=== PATIENT | female | born 1950 | race Caucasian/White ===

== ENCOUNTER 2022-07-12 19:25 | Inpatient (IN) ==
[2022-07-12] MEDS ORDERED: ACETAMINOPHEN 325 MG TABLET PO PRN (20:06)
[2022-07-12] MEDS ORDERED: DOCUSATE SODIUM 100 MG CAPSULE PO PRN (20:06)
[2022-07-12 20:44] LABS: Basophils % 0.2 % (0.0-0.8); Eosinophils # 0.5 10*3/uL (0.0-0.87); Eosinophils % 2.9 % (0.00-10.9); Hematocrit 43.1 VOL% (35.7-47.0); Hemoglobin 14.3 GM/DL (12.0-16.0); Immature Granulocytes % 0.5 %; Immature Granulocytes Absolute 0.08 #; Lymphocytes # 1.4 10*3/uL (1.4-4.0); Lymphocytes % 8.7 % (21.3-54.2); Mean Corpuscular HGB Conc 33.2 GM/DL (32-36); Mean Corpuscular Volume 94.3 FL (87-102); Mean Platelet Volume 9.8 FL (9.6-12.0); Monocytes # 1.4 10*3/uL (0.11-0.8); Monocytes % 8.9 % (1.7-12.7); Neutrophils % 78.8 % (38.7-73.9); Platelet Count 321 T/CUMM (130-400); Red Blood Count 4.57 MC/CUMM (3.8-5.5); White Blood Count 15.8 T/CUMM (4-12)
[2022-07-12 20:58] LABS: Eosinophils,Pleural Fluid 1 %; Lymphocytes,Pleural Fluid 56 %; Monocytes,Pleural Fluid 7 %; Neutrophils,Pleural Fluid 36 %; RBC,Pleural Fluid 12166 T/CUMM
[2022-07-12 21:06] LABS: LDH,Pleural Fluid 400 U/L; Total Protein,Pleural Fluid 3.9 G/DL
[2022-07-12 21:09] LABS: Albumin 2.5 G/DL (3.4-5.0); Bilirubin,Total 0.5 MG/DL (0.20-1.00); Calcium 7.7 MG/DL (8.5-10.1); Osmolality,Calculated 281.5 MOS/KG (273-304); Potassium 3.9 MMOL/L (3.5-5.1); Total Protein 5.9 G/DL (6.4-8.2)
[2022-07-12 21:11] LABS: INR 0.9; PT Patient Result 10.5 SECS (10.1-12.1); Partial Thromboplastin Time 26.5 SECS (23.7-32.9)
[2022-07-12] MEDS: ENOXAPARIN 40 MG/0.4 ML SYRINGE SUBCUT SCH (22:45)
[2022-07-12] MEDS: LEVOFLOXACIN INJ 500 MG/100 ML PREMIX IV SCH (23:40)
[2022-07-13] MEDS: ONDANSETRON 4 MG/2 ML VIAL IV PRN
[2022-07-13] MEDS: MORPHINE 2 MG/1 ML SYRINGE IV PRN (00:43)
[2022-07-13] MEDS: ALBUTEROL/IPRATROPIUM 3 ML NEB RESP TX SCH ×4 (01:20→19:22)
[2022-07-13 04:33] LABS: Basophils % 0.2 % (0.0-0.8); Eosinophils # 0.6 10*3/uL (0.0-0.87); Hematocrit 42.4 VOL% (35.7-47.0); Hemoglobin 13.9 GM/DL (12.0-16.0); Immature Granulocytes % 0.6 %; Immature Granulocytes Absolute 0.08 #; Lymphocytes # 1.5 10*3/uL (1.4-4.0); Lymphocytes % 10.6 % (21.3-54.2); Mean Corpuscular HGB Conc 32.8 GM/DL (32-36); Mean Corpuscular Volume 95.9 FL (87-102); Mean Platelet Volume 9.8 FL (9.6-12.0); Monocytes # 1.3 10*3/uL (0.11-0.8); Monocytes % 9.4 % (1.7-12.7); Neutrophils % 75.2 % (38.7-73.9); Platelet Count 301 T/CUMM (130-400); Red Blood Count 4.42 MC/CUMM (3.8-5.5); White Blood Count 14.1 T/CUMM (4-12)
[2022-07-13 05:01] LABS: Calcium 8.1 MG/DL (8.5-10.1); Osmolality,Calculated 277.8 MOS/KG (273-304)
[2022-07-13] MEDS: LEVOFLOXACIN INJ 500 MG/100 ML PREMIX IV SCH (20:38)
[2022-07-13] MEDS: ENOXAPARIN 40 MG/0.4 ML SYRINGE SUBCUT SCH (20:43)
[2022-07-14] MEDS: ALBUTEROL/IPRATROPIUM 3 ML NEB RESP TX SCH ×4 (00:14→19:06)
[2022-07-14 03:58] LABS: Basophils % 0.3 % (0.0-0.8); Eosinophils # 0.6 10*3/uL (0.0-0.87); Hematocrit 42.1 VOL% (35.7-47.0); Hemoglobin 13.9 GM/DL (12.0-16.0); Immature Granulocytes % 0.8 %; Immature Granulocytes Absolute 0.11 #; Lymphocytes # 1.7 10*3/uL (1.4-4.0); Lymphocytes % 11.8 % (21.3-54.2); Mean Corpuscular Volume 94.8 FL (87-102); Mean Platelet Volume 9.7 FL (9.6-12.0); Monocytes # 1.3 10*3/uL (0.11-0.8); Monocytes % 9.2 % (1.7-12.7); Neutrophils % 73.9 % (38.7-73.9); Platelet Count 277 T/CUMM (130-400); Red Blood Count 4.44 MC/CUMM (3.8-5.5); Red Cell Distribution Width 12.9 % (9.3-17.3); White Blood Count 14.6 T/CUMM (4-12)
[2022-07-14 04:10] LABS: INR 0.9; PT Patient Result 10.5 SECS (10.1-12.1); Partial Thromboplastin Time 31.5 SECS (23.7-32.9)
[2022-07-14 04:30] LABS: Albumin 2.2 G/DL (3.4-5.0); Bilirubin,Total 0.4 MG/DL (0.20-1.00); Osmolality,Calculated 277.8 MOS/KG (273-304); Potassium 3.5 MMOL/L (3.5-5.1); Total Protein 5.3 G/DL (6.4-8.2)
[2022-07-14] MEDS ORDERED: MEPERIDINE 50 MG/1 ML VIAL IM ONE (07:00)
[2022-07-14] MEDS ORDERED: PROMETHAZINE 25 MG/1 ML VIAL IM ONE (07:00)
[2022-07-14] MEDS ORDERED: LIDOCAINE 2% VISCOUS 100 ML BOTTLE SWISH/SPIT ONE (07:30)
[2022-07-14] MEDS ORDERED: LIDOCAINE 1% 20 ML VIAL MISC INJ ONE (07:30)
[2022-07-14] MEDS ORDERED: MIDAZOLAM 2 MG/2 ML VIAL IV ONE (07:30)
[2022-07-14] MEDS ORDERED: LIDOCAINE 2% 20 ML VIAL RESP TX ONE (07:30)
[2022-07-14 13:16] LABS: CEA, Pleural Fluid 207 ng/mL
[2022-07-14] MEDS: ONDANSETRON 4 MG/2 ML VIAL IV PRN (14:32)
[2022-07-14] MEDS: MORPHINE 2 MG/1 ML SYRINGE IV PRN (14:33)
[2022-07-14] MEDS: ENOXAPARIN 40 MG/0.4 ML SYRINGE SUBCUT SCH (20:42)
[2022-07-14] MEDS: LEVOFLOXACIN INJ 500 MG/100 ML PREMIX IV SCH (20:42)
[2022-07-15] MEDS: ALBUTEROL/IPRATROPIUM 3 ML NEB RESP TX SCH ×4 (00:12→19:07)
[2022-07-15] MEDS: ONDANSETRON 4 MG/2 ML VIAL IV PRN ×2 (04:53→20:29)
[2022-07-15] MEDS: MORPHINE 2 MG/1 ML SYRINGE IV PRN ×2 (04:55→20:31)
[2022-07-15 19:11] LABS: M. Tuberculosis PCR Result Negative (Negative); M. Tuberculosis PCR Source PLEURAL FLUID
[2022-07-15] MEDS: ENOXAPARIN 40 MG/0.4 ML SYRINGE SUBCUT SCH (20:28)
[2022-07-15] MEDS: LEVOFLOXACIN INJ 500 MG/100 ML PREMIX IV SCH (20:32)
[2022-07-16] MEDS: ALBUTEROL/IPRATROPIUM 3 ML NEB RESP TX SCH ×4 (00:19→19:15)
[2022-07-16 05:12] LABS: Basophils % 0.3 % (0.0-0.8); Eosinophils # 0.6 10*3/uL (0.0-0.87); Eosinophils % 4.4 % (0.00-10.9); Hematocrit 41.3 VOL% (35.7-47.0); Hemoglobin 13.6 GM/DL (12.0-16.0); Immature Granulocytes % 0.6 %; Immature Granulocytes Absolute 0.08 #; Lymphocytes # 1.7 10*3/uL (1.4-4.0); Lymphocytes % 13.1 % (21.3-54.2); Mean Corpuscular HGB Conc 32.9 GM/DL (32-36); Mean Corpuscular Volume 94.7 FL (87-102); Mean Platelet Volume 9.8 FL (9.6-12.0); Monocytes # 1.3 10*3/uL (0.11-0.8); Monocytes % 10.4 % (1.7-12.7); Neutrophils % 71.2 % (38.7-73.9); Platelet Count 262 T/CUMM (130-400); Red Blood Count 4.36 MC/CUMM (3.8-5.5); Red Cell Distribution Width 12.9 % (9.3-17.3); White Blood Count 12.9 T/CUMM (4-12)
[2022-07-16 05:33] LABS: Calcium 7.6 MG/DL (8.5-10.1); Osmolality,Calculated 275.7 MOS/KG (273-304); Potassium 3.2 MMOL/L (3.5-5.1)
[2022-07-16] MEDS: POTASSIUM CHLORIDE RIDER 10 MEQ/100 ML PREMIX IV SCH ×2 (11:32→11:58)
[2022-07-16] MEDS ORDERED: POTASSIUM CHLORIDE 20 MEQ TABLET PO ONE (11:55)
[2022-07-16] MEDS: ONDANSETRON 4 MG/2 ML VIAL IV PRN (22:51)
[2022-07-16] MEDS: MORPHINE 2 MG/1 ML SYRINGE IV PRN (22:51)
[2022-07-16] MEDS: LEVOFLOXACIN INJ 500 MG/100 ML PREMIX IV SCH (22:52)
[2022-07-16] MEDS: ENOXAPARIN 40 MG/0.4 ML SYRINGE SUBCUT SCH (22:52)
[2022-07-17] MEDS: ALBUTEROL/IPRATROPIUM 3 ML NEB RESP TX SCH ×3 (00:25→13:55)
[2022-07-17 05:58] LABS: Basophils % 0.3 % (0.0-0.8); Eosinophils # 0.5 10*3/uL (0.0-0.87); Eosinophils % 3.8 % (0.00-10.9); Hematocrit 41.4 VOL% (35.7-47.0); Hemoglobin 13.6 GM/DL (12.0-16.0); Immature Granulocytes % 0.9 %; Immature Granulocytes Absolute 0.11 #; Lymphocytes # 1.6 10*3/uL (1.4-4.0); Mean Corpuscular HGB Conc 32.9 GM/DL (32-36); Mean Corpuscular Volume 96.1 FL (87-102); Mean Platelet Volume 10.1 FL (9.6-12.0); Monocytes # 1.4 10*3/uL (0.11-0.8); Monocytes % 11.5 % (1.7-12.7); Neutrophils % 70.5 % (38.7-73.9); Platelet Count 252 T/CUMM (130-400); Red Blood Count 4.31 MC/CUMM (3.8-5.5); Red Cell Distribution Width 12.9 % (9.3-17.3); White Blood Count 12.3 T/CUMM (4-12)
[2022-07-17 06:13] LABS: Calcium 7.8 MG/DL (8.5-10.1); Osmolality,Calculated 277.5 MOS/KG (273-304); Potassium 3.4 MMOL/L (3.5-5.1)
[2022-07-17] MEDS ORDERED: FUROSEMIDE 40 MG TABLET PO ONE (08:20)
[2022-07-17] MEDS ORDERED: POTASSIUM CHLORIDE RIDER 10 MEQ/100 ML PREMIX IV SCH (09:00)
[2022-07-17] MEDS ORDERED: POTASSIUM CHLORIDE 20 MEQ TABLET PO PRN (10:07)
[2022-07-17 11:59] VITALS: BP 139/66
== END 2022-07-17 16:30 | disposition home or self-care (01) | DRG 180 ==
LOC: N.ED 19:25 → N.EDINP 20:02 → SUATTDRO 20:02 → N.2E 07-13 11:10
PROVIDERS: ADMIT Internal Medicine; ATTEND Internal Medicine
PROC: BRONCHB (2022-07-14 07:20)

== ENCOUNTER 2022-07-24 13:19 | Inpatient (IN) ==
[2022-07-24 14:09] LABS: Basophils % 0.2 % (0.0-0.8); Eosinophils # 0.3 10*3/uL (0.0-0.87); Eosinophils % 2.2 % (0.00-10.9); Hemoglobin 14.1 GM/DL (12.0-16.0); Immature Granulocytes % 0.9 %; Immature Granulocytes Absolute 0.14 #; Lymphocytes # 1.2 10*3/uL (1.4-4.0); Lymphocytes % 7.8 % (21.3-54.2); Mean Corpuscular HGB Conc 32.8 GM/DL (32-36); Mean Corpuscular Volume 93.9 FL (87-102); Mean Platelet Volume 9.5 FL (9.6-12.0); Monocytes # 1.3 10*3/uL (0.11-0.8); Monocytes % 8.4 % (1.7-12.7); Neutrophils % 80.5 % (38.7-73.9); Platelet Count 325 T/CUMM (130-400); Red Blood Count 4.58 MC/CUMM (3.8-5.5); Red Cell Distribution Width 13.5 % (9.3-17.3); White Blood Count 15.1 T/CUMM (4-12)
[2022-07-24 14:22] LABS: Albumin 2.7 G/DL (3.4-5.0); Bilirubin,Total 0.5 MG/DL (0.20-1.00); Calcium 8.7 MG/DL (8.5-10.1); Osmolality,Calculated 277.8 MOS/KG (273-304); Potassium 3.1 MMOL/L (3.5-5.1); Total Protein 6.1 G/DL (6.4-8.2)
[2022-07-24 15:46] LABS: PT Patient Result 10.7 SECS (10.1-12.1); Partial Thromboplastin Time 31.5 SECS (23.7-32.9)
[2022-07-24] MEDS ORDERED: ALBUTEROL 1.25 MG/3 ML NEB RESP TX PRN (16:29)
[2022-07-24] MEDS ORDERED: DEXTROSE 10% 250 ML BAG IV PRN (16:29)
[2022-07-24] MEDS ORDERED: GLUCAGON 1 MG VIAL IM PRN (16:30)
[2022-07-24] MEDS ORDERED: MAGNESIUM SULF RIDER 2 GM/50 ML PREMIX IV PRN (16:31)
[2022-07-24] MEDS ORDERED: MAGNESIUM SULF RIDER 4 GM/100 ML PREMIX IV PRN (16:31)
[2022-07-24] MEDS ORDERED: POTASSIUM CHLORIDE 20 MEQ TABLET PO PRN (16:34)
[2022-07-24] MEDS ORDERED: LACTATED RINGERS 1,000 ML IV SCH (17:00)
[2022-07-24] MEDS: ENOXAPARIN 40 MG/0.4 ML SYRINGE SUBCUT SCH (18:24)
[2022-07-24] MEDS: INSULIN LISPRO 100 UNIT/ML SUBCUT SCH (22:16)
[2022-07-25] MEDS: INSULIN LISPRO 100 UNIT/ML SUBCUT SCH ×4 (07:23→21:25)
[2022-07-25 08:43] LABS: Basophils % 0.4 % (0.0-0.8); Eosinophils # 0.6 10*3/uL (0.0-0.87); Eosinophils % 5.4 % (0.00-10.9); Hemoglobin 12.7 GM/DL (12.0-16.0); Immature Granulocytes % 0.5 %; Immature Granulocytes Absolute 0.05 #; Lymphocytes # 1.3 10*3/uL (1.4-4.0); Mean Corpuscular HGB Conc 32.6 GM/DL (32-36); Mean Corpuscular Volume 95.8 FL (87-102); Mean Platelet Volume 9.3 FL (9.6-12.0); Monocytes # 0.9 10*3/uL (0.11-0.8); Monocytes % 8.3 % (1.7-12.7); Neutrophils % 73.4 % (38.7-73.9); Platelet Count 286 T/CUMM (130-400); Red Blood Count 4.07 MC/CUMM (3.8-5.5); Red Cell Distribution Width 13.3 % (9.3-17.3); White Blood Count 10.5 T/CUMM (4-12)
[2022-07-25 09:08] LABS: Albumin 2.1 G/DL (3.4-5.0); Bilirubin,Total 0.5 MG/DL (0.20-1.00); Osmolality,Calculated 282.5 MOS/KG (273-304); Potassium 2.9 MMOL/L (3.5-5.1); Total Protein 5.3 G/DL (6.4-8.2)
[2022-07-25] MEDS ORDERED: POTASSIUM CHLORIDE 20 MEQ TABLET PO ONE ×3 (14:15→21:00)
[2022-07-25] MEDS: ENOXAPARIN 40 MG/0.4 ML SYRINGE SUBCUT SCH (17:38)
[2022-07-25] MEDS: ALBUTEROL 1.25 MG/3 ML NEB RESP TX SCH (18:26)
[2022-07-26] MEDS: ALBUTEROL 1.25 MG/3 ML NEB RESP TX SCH ×4 (01:37→19:25)
[2022-07-26 05:29] LABS: Basophils % 0.2 % (0.0-0.8); Eosinophils # 0.6 10*3/uL (0.0-0.87); Hematocrit 38.8 VOL% (35.7-47.0); Hemoglobin 12.8 GM/DL (12.0-16.0); Immature Granulocytes % 0.5 %; Immature Granulocytes Absolute 0.06 #; Lymphocytes # 1.3 10*3/uL (1.4-4.0); Lymphocytes % 10.6 % (21.3-54.2); Mean Corpuscular Volume 96.5 FL (87-102); Mean Platelet Volume 9.6 FL (9.6-12.0); Monocytes # 1.1 10*3/uL (0.11-0.8); Monocytes % 9.4 % (1.7-12.7); Neutrophils % 74.3 % (38.7-73.9); Platelet Count 309 T/CUMM (130-400); Red Blood Count 4.02 MC/CUMM (3.8-5.5); Red Cell Distribution Width 13.3 % (9.3-17.3); White Blood Count 12.1 T/CUMM (4-12)
[2022-07-26 05:57] LABS: Albumin 2.1 G/DL (3.4-5.0); Bilirubin,Total 0.5 MG/DL (0.20-1.00); Osmolality,Calculated 281.5 MOS/KG (273-304); Potassium 3.9 MMOL/L (3.5-5.1); Total Protein 5.6 G/DL (6.4-8.2)
[2022-07-26] MEDS: INSULIN LISPRO 100 UNIT/ML SUBCUT SCH ×4 (08:31→20:07)
[2022-07-26] MEDS: ONDANSETRON 4 MG/2 ML VIAL IV PRN (12:23)
[2022-07-26] MEDS: MORPHINE 2 MG/1 ML SYRINGE IV PRN (12:24)
[2022-07-27] MEDS: ALBUTEROL 1.25 MG/3 ML NEB RESP TX SCH ×4 (00:04→19:07)
[2022-07-27] MEDS: ONDANSETRON 4 MG/2 ML VIAL IV PRN ×2 (05:20→21:34)
[2022-07-27 05:45] LABS: Basophils % 0.3 % (0.0-0.8); Eosinophils # 0.7 10*3/uL (0.0-0.87); Eosinophils % 5.6 % (0.00-10.9); Hematocrit 39.5 VOL% (35.7-47.0); Hemoglobin 12.9 GM/DL (12.0-16.0); Immature Granulocytes % 0.6 %; Immature Granulocytes Absolute 0.08 #; Lymphocytes % 7.4 % (21.3-54.2); Mean Corpuscular HGB Conc 32.7 GM/DL (32-36); Mean Corpuscular Volume 98.5 FL (87-102); Mean Platelet Volume 9.6 FL (9.6-12.0); Monocytes # 1.2 10*3/uL (0.11-0.8); Monocytes % 9.6 % (1.7-12.7); Neutrophils % 76.5 % (38.7-73.9); Platelet Count 302 T/CUMM (130-400); Red Blood Count 4.01 MC/CUMM (3.8-5.5); Red Cell Distribution Width 13.2 % (9.3-17.3); White Blood Count 12.9 T/CUMM (4-12)
[2022-07-27 05:58] LABS: Albumin 2.1 G/DL (3.4-5.0); Bilirubin,Total 0.4 MG/DL (0.20-1.00); Calcium 8.1 MG/DL (8.5-10.1); Osmolality,Calculated 284.4 MOS/KG (273-304); Potassium 3.8 MMOL/L (3.5-5.1); Total Protein 5.6 G/DL (6.4-8.2)
[2022-07-27] MEDS ORDERED: DIAZEPAM 5 MG TABLET PO ONE (07:48)
[2022-07-27] MEDS: INSULIN LISPRO 100 UNIT/ML SUBCUT SCH ×4 (08:24→21:34)
[2022-07-27] MEDS: FOLIC ACID 1 MG TABLET PO SCH (11:33)
[2022-07-27] MEDS ORDERED: PROMETHAZINE INJ 12.5 MG in SODIUM CHLORIDE 0.9% 50 ML IV PRN (13:31)
[2022-07-27] MEDS: POLYETHYLENE GLYCOL POWDER 17 GM PACK PO SCH (14:46)
[2022-07-27] MEDS: MORPHINE 2 MG/1 ML SYRINGE IV PRN (21:33)
[2022-07-28] MEDS: ALBUTEROL 1.25 MG/3 ML NEB RESP TX SCH ×4 (00:05→17:55)
[2022-07-28 05:36] LABS: Basophils % 0.2 % (0.0-0.8); Eosinophils # 0.6 10*3/uL (0.0-0.87); Eosinophils % 4.6 % (0.00-10.9); Hematocrit 40.1 VOL% (35.7-47.0); Hemoglobin 12.9 GM/DL (12.0-16.0); Immature Granulocytes % 0.7 %; Lymphocytes # 0.9 10*3/uL (1.4-4.0); Lymphocytes % 6.5 % (21.3-54.2); Mean Corpuscular HGB Conc 32.2 GM/DL (32-36); Mean Corpuscular Volume 97.8 FL (87-102); Mean Platelet Volume 9.7 FL (9.6-12.0); Monocytes # 1.4 10*3/uL (0.11-0.8); Monocytes % 10.4 % (1.7-12.7); Neutrophils % 77.6 % (38.7-73.9); Platelet Count 288 T/CUMM (130-400); Red Cell Distribution Width 13.2 % (9.3-17.3); White Blood Count 13.6 T/CUMM (4-12)
[2022-07-28 05:56] LABS: Bilirubin,Total 0.5 MG/DL (0.20-1.00); Calcium 8.2 MG/DL (8.5-10.1); Osmolality,Calculated 279.7 MOS/KG (273-304); Total Protein 5.5 G/DL (6.4-8.2)
[2022-07-28] MEDS ORDERED: fentaNYL 100 MCG/2 ML VIAL ONE (05:57)
[2022-07-28] MEDS ORDERED: MIDAZOLAM 2 MG/2 ML VIAL ONE (05:57)
[2022-07-28] MEDS ORDERED: propofoL 200 MG/20 ML VIAL IV ONE (05:57)
[2022-07-28] MEDS ORDERED: LIDOCAINE 2% 5 ML VIAL ONE (05:57)
[2022-07-28] MEDS ORDERED: HEPARIN 5,000 UNIT/1 ML VIAL ONE (06:35)
[2022-07-28] MEDS ORDERED: LIDOCAINE 1%/EPI INJ 20 ML VIAL ONE (06:35)
[2022-07-28] MEDS ORDERED: BUPIVACAINE MPF 0.25% 10 ML VIAL ONE (06:35)
[2022-07-28] MEDS ORDERED: diphenhydrAMINE 50 MG/1 ML VIAL ONE (06:58)
[2022-07-28] MEDS ORDERED: methylPREDNISolone SOD SUC 125 MG/2 ML VIAL ONE (06:58)
[2022-07-28] MEDS ORDERED: LACTATED RINGERS 1,000 ML IV SCH (07:00)
[2022-07-28] MEDS ORDERED: TISSUE ADHESIVE 1 EACH APPLICATOR TOP ONE (07:46)
[2022-07-28] MEDS ORDERED: POLYETHYLENE GLYCOL POWDER 17 GM PACK PO SCH (09:00)
[2022-07-28] MEDS: FOLIC ACID 1 MG TABLET PO SCH (09:07)
[2022-07-28] MEDS: INSULIN LISPRO 100 UNIT/ML SUBCUT SCH ×4 (09:08→23:55)
[2022-07-28] MEDS: POLYETHYLENE GLYCOL POWDER 17 GM PACK PO SCH (09:08)
[2022-07-28] MEDS ORDERED: CAMPHOR/MENTHOL LOTION 222 ML BOTTLE TOP PRN (15:08)
[2022-07-28] MEDS ORDERED: hydrOXYzine HCL 25 MG TABLET PO PRN (15:09)
[2022-07-28] MEDS ORDERED: FUROSEMIDE 40 MG/4 ML VIAL IV STA (19:06)
[2022-07-29] MEDS: ALBUTEROL 1.25 MG/3 ML NEB RESP TX SCH ×4 (00:02→20:51)
[2022-07-29 06:33] LABS: Basophils % 0.1 % (0.0-0.8); Eosinophils # 0.6 10*3/uL (0.0-0.87); Eosinophils % 4.2 % (0.00-10.9); Hematocrit 41.3 VOL% (35.7-47.0); Hemoglobin 13.4 GM/DL (12.0-16.0); Immature Granulocytes % 0.7 %; Immature Granulocytes Absolute 0.09 #; Lymphocytes # 0.8 10*3/uL (1.4-4.0); Lymphocytes % 5.6 % (21.3-54.2); Mean Corpuscular HGB Conc 32.4 GM/DL (32-36); Mean Corpuscular Volume 97.2 FL (87-102); Mean Platelet Volume 9.6 FL (9.6-12.0); Monocytes # 1.3 10*3/uL (0.11-0.8); Monocytes % 9.3 % (1.7-12.7); Neutrophils % 80.1 % (38.7-73.9); Platelet Count 268 T/CUMM (130-400); Red Blood Count 4.25 MC/CUMM (3.8-5.5); Red Cell Distribution Width 13.1 % (9.3-17.3); White Blood Count 13.5 T/CUMM (4-12)
[2022-07-29 06:54] LABS: Bilirubin,Total 0.5 MG/DL (0.20-1.00); Calcium 8.1 MG/DL (8.5-10.1); Osmolality,Calculated 280.5 MOS/KG (273-304); Potassium 4.1 MMOL/L (3.5-5.1); Total Protein 5.7 G/DL (6.4-8.2)
[2022-07-29] MEDS: INSULIN LISPRO 100 UNIT/ML SUBCUT SCH ×4 (07:32→21:59)
[2022-07-29] MEDS: FOLIC ACID 1 MG TABLET PO SCH (08:24)
[2022-07-29] MEDS: POLYETHYLENE GLYCOL POWDER 17 GM PACK PO SCH (08:24)
[2022-07-29] MEDS: diphenhydrAMINE CAP 25 MG CAPSULE PO PRN ×2 (08:24→13:33)
[2022-07-29] MEDS: ENOXAPARIN 40 MG/0.4 ML SYRINGE SUBCUT SCH (17:13)
[2022-07-30] MEDS: ALBUTEROL 1.25 MG/3 ML NEB RESP TX SCH ×4 (01:24→19:29)
[2022-07-30 05:29] LABS: Basophils % 0.2 % (0.0-0.8); Eosinophils # 0.6 10*3/uL (0.0-0.87); Eosinophils % 4.8 % (0.00-10.9); Hematocrit 38.6 VOL% (35.7-47.0); Hemoglobin 12.8 GM/DL (12.0-16.0); Immature Granulocytes % 1.1 %; Immature Granulocytes Absolute 0.15 #; Lymphocytes # 0.8 10*3/uL (1.4-4.0); Lymphocytes % 6.4 % (21.3-54.2); Mean Corpuscular HGB Conc 33.2 GM/DL (32-36); Mean Corpuscular Volume 95.1 FL (87-102); Monocytes # 1.1 10*3/uL (0.11-0.8); Monocytes % 8.6 % (1.7-12.7); Neutrophils % 78.9 % (38.7-73.9); Platelet Count 260 T/CUMM (130-400); Red Blood Count 4.06 MC/CUMM (3.8-5.5); Red Cell Distribution Width 12.9 % (9.3-17.3); White Blood Count 13.2 T/CUMM (4-12)
[2022-07-30 05:56] LABS: Albumin 1.9 G/DL (3.4-5.0); Bilirubin,Total 0.5 MG/DL (0.20-1.00); Calcium 8.4 MG/DL (8.5-10.1); Osmolality,Calculated 275.1 MOS/KG (273-304); Potassium 4.2 MMOL/L (3.5-5.1); Total Protein 5.4 G/DL (6.4-8.2)
[2022-07-30] MEDS: diphenhydrAMINE CAP 25 MG CAPSULE PO PRN (06:24)
[2022-07-30] MEDS: INSULIN LISPRO 100 UNIT/ML SUBCUT SCH ×4 (08:17→21:00)
[2022-07-30] MEDS: FOLIC ACID 1 MG TABLET PO SCH (10:26)
[2022-07-30] MEDS: POLYETHYLENE GLYCOL POWDER 17 GM PACK PO SCH (10:27)
[2022-07-30] MEDS: ENOXAPARIN 40 MG/0.4 ML SYRINGE SUBCUT SCH (16:52)
[2022-07-31] MEDS: diphenhydrAMINE CAP 25 MG CAPSULE PO PRN ×2 (00:05→09:27)
[2022-07-31] MEDS: ALBUTEROL 1.25 MG/3 ML NEB RESP TX SCH ×4 (00:12→19:33)
[2022-07-31 05:25] LABS: Basophils % 0.2 % (0.0-0.8); Eosinophils # 0.8 10*3/uL (0.0-0.87); Eosinophils % 6.6 % (0.00-10.9); Hemoglobin 12.5 GM/DL (12.0-16.0); Immature Granulocytes % 0.6 %; Immature Granulocytes Absolute 0.07 #; Lymphocytes # 1.1 10*3/uL (1.4-4.0); Lymphocytes % 8.4 % (21.3-54.2); Mean Corpuscular HGB Conc 32.9 GM/DL (32-36); Mean Corpuscular Volume 96.2 FL (87-102); Mean Platelet Volume 9.2 FL (9.6-12.0); Monocytes # 1.2 10*3/uL (0.11-0.8); Monocytes % 9.3 % (1.7-12.7); Neutrophils % 74.9 % (38.7-73.9); Platelet Count 253 T/CUMM (130-400); Red Blood Count 3.95 MC/CUMM (3.8-5.5); Red Cell Distribution Width 12.8 % (9.3-17.3); White Blood Count 12.6 T/CUMM (4-12)
[2022-07-31 05:58] LABS: Calcium 8.7 MG/DL (8.5-10.1); Potassium 4.4 MMOL/L (3.5-5.1)
[2022-07-31] MEDS: INSULIN LISPRO 100 UNIT/ML SUBCUT SCH ×4 (07:43→20:46)
[2022-07-31] MEDS: FOLIC ACID 1 MG TABLET PO SCH (09:25)
[2022-07-31] MEDS: POLYETHYLENE GLYCOL POWDER 17 GM PACK PO SCH (09:25)
[2022-07-31] MEDS: ENOXAPARIN 40 MG/0.4 ML SYRINGE SUBCUT SCH (17:06)
[2022-07-31] MEDS: OMEPRAZOLE ODT 20 MG TABLET PO SCH ×2 (18:19→21:29)
[2022-08-01] MEDS: ALBUTEROL 1.25 MG/3 ML NEB RESP TX SCH ×4 (01:31→19:15)
[2022-08-01] MEDS: FOLIC ACID 1 MG TABLET PO SCH (08:30)
[2022-08-01] MEDS: OMEPRAZOLE ODT 20 MG TABLET PO SCH ×2 (08:30→21:28)
[2022-08-01] MEDS: INSULIN LISPRO 100 UNIT/ML SUBCUT SCH ×4 (08:31→21:26)
[2022-08-01] MEDS: diphenhydrAMINE CAP 25 MG CAPSULE PO PRN (08:32)
[2022-08-01] MEDS: POLYETHYLENE GLYCOL POWDER 17 GM PACK PO SCH (08:32)
[2022-08-01] MEDS: ALBUTEROL 2.5 MG/3 ML NEB RESP TX PRN (11:30)
[2022-08-01] MEDS: ENOXAPARIN 40 MG/0.4 ML SYRINGE SUBCUT SCH (17:17)
[2022-08-02] MEDS: ALBUTEROL 1.25 MG/3 ML NEB RESP TX SCH ×4 (00:05→19:54)
[2022-08-02 06:00] LABS: Basophils # 0.1 10*3/uL (0.0-0.2); Basophils % 0.5 % (0.0-0.8); Eosinophils # 0.9 10*3/uL (0.0-0.87); Eosinophils % 7.1 % (0.00-10.9); Hematocrit 36.7 VOL% (35.7-47.0); Hemoglobin 11.8 GM/DL (12.0-16.0); Immature Granulocytes % 0.9 %; Immature Granulocytes Absolute 0.11 #; Lymphocytes # 1.2 10*3/uL (1.4-4.0); Lymphocytes % 9.5 % (21.3-54.2); Mean Corpuscular HGB Conc 32.2 GM/DL (32-36); Mean Corpuscular Volume 96.8 FL (87-102); Mean Platelet Volume 9.4 FL (9.6-12.0); Monocytes # 1.2 10*3/uL (0.11-0.8); Platelet Count 281 T/CUMM (130-400); Red Blood Count 3.79 MC/CUMM (3.8-5.5); Red Cell Distribution Width 13.1 % (9.3-17.3); White Blood Count 12.3 T/CUMM (4-12)
[2022-08-02 06:22] LABS: Osmolality,Calculated 274.8 MOS/KG (273-304); Potassium 3.7 MMOL/L (3.5-5.1)
[2022-08-02] MEDS: ACETAMINOPHEN 325 MG TABLET PO PRN (08:45)
[2022-08-02] MEDS: FOLIC ACID 1 MG TABLET PO SCH (08:45)
[2022-08-02] MEDS: OMEPRAZOLE ODT 20 MG TABLET PO SCH ×2 (08:46→20:25)
[2022-08-02] MEDS: POLYETHYLENE GLYCOL POWDER 17 GM PACK PO SCH (08:47)
[2022-08-02] MEDS: INSULIN LISPRO 100 UNIT/ML SUBCUT SCH ×4 (08:48→20:25)
[2022-08-02] MEDS ORDERED: MORPHINE 2 MG/1 ML SYRINGE IV ONE (10:24)
[2022-08-02] MEDS: ENOXAPARIN 40 MG/0.4 ML SYRINGE SUBCUT SCH (16:32)
[2022-08-02] MEDS: diphenhydrAMINE CAP 25 MG CAPSULE PO PRN (17:46)
[2022-08-03] MEDS: ALBUTEROL 1.25 MG/3 ML NEB RESP TX SCH ×4 (01:14→19:05)
[2022-08-03] MEDS: ACETAMINOPHEN 325 MG TABLET PO PRN (04:15)
[2022-08-03 06:08] LABS: Basophils # 0.1 10*3/uL (0.0-0.2); Basophils % 0.4 % (0.0-0.8); Calcium 8.1 MG/DL (8.5-10.1); Eosinophils % 7.8 % (0.00-10.9); Hematocrit 34.9 VOL% (35.7-47.0); Hemoglobin 11.1 GM/DL (12.0-16.0); Immature Granulocytes % 0.7 %; Immature Granulocytes Absolute 0.08 #; Lymphocytes # 1.4 10*3/uL (1.4-4.0); Lymphocytes % 11.3 % (21.3-54.2); Mean Corpuscular HGB Conc 31.8 GM/DL (32-36); Mean Corpuscular Volume 99.1 FL (87-102); Monocytes # 1.2 10*3/uL (0.11-0.8); Monocytes % 10.1 % (1.7-12.7); Neutrophils % 69.7 % (38.7-73.9); Osmolality,Calculated 276.7 MOS/KG (273-304); Platelet Count 309 T/CUMM (130-400); Potassium 3.6 MMOL/L (3.5-5.1); Red Blood Count 3.52 MC/CUMM (3.8-5.5); Red Cell Distribution Width 13.1 % (9.3-17.3); White Blood Count 12.1 T/CUMM (4-12)
[2022-08-03] MEDS: INSULIN LISPRO 100 UNIT/ML SUBCUT SCH ×4 (07:43→21:07)
[2022-08-03] MEDS: OMEPRAZOLE ODT 20 MG TABLET PO SCH ×2 (08:39→21:08)
[2022-08-03] MEDS: FOLIC ACID 1 MG TABLET PO SCH (08:39)
[2022-08-03] MEDS: POLYETHYLENE GLYCOL POWDER 17 GM PACK PO SCH (08:41)
[2022-08-03] MEDS ORDERED: ALBUTEROL 2.5 MG/3 ML NEB RESP TX ONE (15:58)
[2022-08-03] MEDS ORDERED: FAMOTIDINE 20 MG TABLET PO ONE (15:58)
[2022-08-03] MEDS: ENOXAPARIN 40 MG/0.4 ML SYRINGE SUBCUT SCH (17:01)
[2022-08-03] MEDS: ALBUTEROL 2.5 MG/3 ML NEB RESP TX PRN (17:35)
[2022-08-04] MEDS: ALBUTEROL 1.25 MG/3 ML NEB RESP TX SCH ×4 (01:00→20:11)
[2022-08-04 05:59] LABS: Basophils # 0.1 10*3/uL (0.0-0.2); Basophils % 0.3 % (0.0-0.8); Eosinophils # 0.6 10*3/uL (0.0-0.87); Eosinophils % 3.6 % (0.00-10.9); Hematocrit 40.8 VOL% (35.7-47.0); Immature Granulocytes % 1.4 %; Immature Granulocytes Absolute 0.24 #; Lymphocytes # 0.7 10*3/uL (1.4-4.0); Lymphocytes % 4.3 % (21.3-54.2); Mean Corpuscular HGB Conc 31.9 GM/DL (32-36); Mean Corpuscular Volume 96.5 FL (87-102); Mean Platelet Volume 9.6 FL (9.6-12.0); Monocytes # 0.7 10*3/uL (0.11-0.8); Neutrophils % 86.4 % (38.7-73.9); Platelet Count 337 T/CUMM (130-400); Red Blood Count 4.23 MC/CUMM (3.8-5.5); Red Cell Distribution Width 13.2 % (9.3-17.3); White Blood Count 17.4 T/CUMM (4-12)
[2022-08-04] MEDS ORDERED: ALBUTEROL 2.5 MG/3 ML NEB RESP TX ONE (06:00)
[2022-08-04] MEDS ORDERED: FAMOTIDINE 20 MG TABLET PO ONE (06:00)
[2022-08-04 06:11] LABS: Calcium 8.1 MG/DL (8.5-10.1); Potassium 4.2 MMOL/L (3.5-5.1)
[2022-08-04 06:34] LABS: Eosinophils 1 % (0-10); Lymphocytes 5 % (20-55); Platelet Estimate Adequate; Total Cells Counted 100
[2022-08-04] MEDS: cefTRIAXone 2,000 MG in SODIUM CHLORIDE 0.9% 100 ML IV SCH (08:55)
[2022-08-04] MEDS: INSULIN LISPRO 100 UNIT/ML SUBCUT SCH ×4 (10:11→21:09)
[2022-08-04] MEDS: FOLIC ACID 1 MG TABLET PO SCH (10:11)
[2022-08-04] MEDS: POLYETHYLENE GLYCOL POWDER 17 GM PACK PO SCH (10:12)
[2022-08-04] MEDS: OMEPRAZOLE ODT 20 MG TABLET PO SCH ×2 (10:12→21:09)
[2022-08-04] MEDS: diphenhydrAMINE CAP 25 MG CAPSULE PO PRN ×2 (11:05→18:05)
[2022-08-04] MEDS: MORPHINE 2 MG/1 ML SYRINGE IV PRN (13:45)
[2022-08-04] MEDS: ENOXAPARIN 40 MG/0.4 ML SYRINGE SUBCUT SCH (16:25)
[2022-08-05] MEDS: ALBUTEROL 1.25 MG/3 ML NEB RESP TX SCH ×4 (01:23→18:20)
[2022-08-05] MEDS: diphenhydrAMINE CAP 25 MG CAPSULE PO PRN ×2 (05:02→18:18)
[2022-08-05 05:52] LABS: Basophils % 0.3 % (0.0-0.8); Eosinophils # 1.1 10*3/uL (0.0-0.87); Eosinophils % 8.7 % (0.00-10.9); Hematocrit 39.5 VOL% (35.7-47.0); Hemoglobin 12.3 GM/DL (12.0-16.0); Immature Granulocytes % 1.2 %; Immature Granulocytes Absolute 0.15 #; Lymphocytes # 1.1 10*3/uL (1.4-4.0); Lymphocytes % 8.8 % (21.3-54.2); Mean Corpuscular HGB Conc 31.1 GM/DL (32-36); Mean Corpuscular Volume 97.5 FL (87-102); Mean Platelet Volume 9.6 FL (9.6-12.0); Monocytes % 8.1 % (1.7-12.7); Neutrophils % 72.9 % (38.7-73.9); Platelet Count 320 T/CUMM (130-400); Red Blood Count 4.05 MC/CUMM (3.8-5.5); Red Cell Distribution Width 13.2 % (9.3-17.3); White Blood Count 12.9 T/CUMM (4-12)
[2022-08-05 06:04] LABS: Calcium 8.1 MG/DL (8.5-10.1); Osmolality,Calculated 274.1 MOS/KG (273-304); Potassium 3.7 MMOL/L (3.5-5.1)
[2022-08-05] MEDS: OMEPRAZOLE ODT 20 MG TABLET PO SCH ×2 (09:13→21:08)
[2022-08-05] MEDS: FOLIC ACID 1 MG TABLET PO SCH (09:13)
[2022-08-05] MEDS: cefTRIAXone 2,000 MG in SODIUM CHLORIDE 0.9% 100 ML IV SCH (09:13)
[2022-08-05] MEDS: POLYETHYLENE GLYCOL POWDER 17 GM PACK PO SCH (09:13)
[2022-08-05] MEDS ORDERED: FUROSEMIDE 40 MG/4 ML VIAL IV ONE (09:53)
[2022-08-05] MEDS: INSULIN LISPRO 100 UNIT/ML SUBCUT SCH ×4 (11:18→21:08)
[2022-08-05] MEDS: ENOXAPARIN 40 MG/0.4 ML SYRINGE SUBCUT SCH (16:26)
[2022-08-06] MEDS: ALBUTEROL 1.25 MG/3 ML NEB RESP TX SCH ×4 (02:21→19:21)
[2022-08-06] MEDS: MORPHINE 2 MG/1 ML SYRINGE IV PRN (04:05)
[2022-08-06 05:53] LABS: Basophils # 0.1 10*3/uL (0.0-0.2); Basophils % 0.4 % (0.0-0.8); Eosinophils # 1.2 10*3/uL (0.0-0.87); Eosinophils % 9.6 % (0.00-10.9); Hematocrit 38.5 VOL% (35.7-47.0); Hemoglobin 12.2 GM/DL (12.0-16.0); Immature Granulocytes Absolute 0.13 #; Lymphocytes # 1.1 10*3/uL (1.4-4.0); Lymphocytes % 8.5 % (21.3-54.2); Mean Corpuscular HGB Conc 31.7 GM/DL (32-36); Mean Platelet Volume 9.6 FL (9.6-12.0); Monocytes # 1.2 10*3/uL (0.11-0.8); Monocytes % 9.6 % (1.7-12.7); Neutrophils % 70.9 % (38.7-73.9); Platelet Count 302 T/CUMM (130-400); Red Blood Count 3.97 MC/CUMM (3.8-5.5); Red Cell Distribution Width 13.2 % (9.3-17.3); White Blood Count 12.8 T/CUMM (4-12)
[2022-08-06 06:12] LABS: Calcium 8.4 MG/DL (8.5-10.1); Osmolality,Calculated 280.7 MOS/KG (273-304); Potassium 4.4 MMOL/L (3.5-5.1)
[2022-08-06] MEDS: INSULIN LISPRO 100 UNIT/ML SUBCUT SCH ×4 (08:30→20:37)
[2022-08-06] MEDS: OMEPRAZOLE ODT 20 MG TABLET PO SCH ×2 (09:25→21:34)
[2022-08-06] MEDS: POLYETHYLENE GLYCOL POWDER 17 GM PACK PO SCH (09:25)
[2022-08-06] MEDS: FOLIC ACID 1 MG TABLET PO SCH (09:25)
[2022-08-06] MEDS: cefTRIAXone 2,000 MG in SODIUM CHLORIDE 0.9% 100 ML IV SCH (09:25)
[2022-08-06] MEDS: ENOXAPARIN 40 MG/0.4 ML SYRINGE SUBCUT SCH (16:43)
[2022-08-06] MEDS: diphenhydrAMINE CAP 25 MG CAPSULE PO PRN (18:08)
[2022-08-07] MEDS: ALBUTEROL 2.5 MG/3 ML NEB RESP TX PRN ×3 (00:06→16:05)
[2022-08-07] MEDS: ALBUTEROL 1.25 MG/3 ML NEB RESP TX SCH ×4 (00:06→20:00)
[2022-08-07 05:42] LABS: Basophils # 0.1 10*3/uL (0.0-0.2); Basophils % 0.5 % (0.0-0.8); Eosinophils # 1.6 10*3/uL (0.0-0.87); Eosinophils % 10.6 % (0.00-10.9); Hematocrit 39.7 VOL% (35.7-47.0); Hemoglobin 12.4 GM/DL (12.0-16.0); Immature Granulocytes Absolute 0.16 #; Lymphocytes # 1.9 10*3/uL (1.4-4.0); Lymphocytes % 12.7 % (21.3-54.2); Mean Corpuscular HGB Conc 31.2 GM/DL (32-36); Mean Corpuscular Volume 98.8 FL (87-102); Monocytes # 1.8 10*3/uL (0.11-0.8); Monocytes % 11.5 % (1.7-12.7); Neutrophils % 63.7 % (38.7-73.9); Platelet Count 326 T/CUMM (130-400); Red Blood Count 4.02 MC/CUMM (3.8-5.5); White Blood Count 15.2 T/CUMM (4-12)
[2022-08-07 05:58] LABS: Calcium 8.3 MG/DL (8.5-10.1); Osmolality,Calculated 275.8 MOS/KG (273-304); Potassium 3.7 MMOL/L (3.5-5.1)
[2022-08-07] MEDS: INSULIN LISPRO 100 UNIT/ML SUBCUT SCH ×4 (07:45→20:21)
[2022-08-07] MEDS: POLYETHYLENE GLYCOL POWDER 17 GM PACK PO SCH (08:56)
[2022-08-07] MEDS: cefTRIAXone 2,000 MG in SODIUM CHLORIDE 0.9% 100 ML IV SCH (08:56)
[2022-08-07] MEDS: FOLIC ACID 1 MG TABLET PO SCH (08:56)
[2022-08-07] MEDS: OMEPRAZOLE ODT 20 MG TABLET PO SCH ×2 (08:56→20:52)
[2022-08-07] MEDS: diphenhydrAMINE CAP 25 MG CAPSULE PO PRN (09:03)
[2022-08-07] MEDS ORDERED: PROCHLORPERAZINE 10 MG/2 ML VIAL IV PRN (12:59)
[2022-08-07] MEDS ORDERED: FUROSEMIDE 20 MG/2 ML VIAL IV ONE (15:58)
[2022-08-07] MEDS: ENOXAPARIN 40 MG/0.4 ML SYRINGE SUBCUT SCH (16:52)
[2022-08-08] MEDS: ALBUTEROL 1.25 MG/3 ML NEB RESP TX SCH ×4 (01:40→20:08)
[2022-08-08] MEDS: INSULIN LISPRO 100 UNIT/ML SUBCUT SCH ×4 (07:52→20:29)
[2022-08-08] MEDS: POLYETHYLENE GLYCOL POWDER 17 GM PACK PO SCH (09:06)
[2022-08-08] MEDS: OMEPRAZOLE ODT 20 MG TABLET PO SCH ×2 (09:08→20:28)
[2022-08-08] MEDS: FOLIC ACID 1 MG TABLET PO SCH (09:09)
[2022-08-08] MEDS: cefTRIAXone 2,000 MG in SODIUM CHLORIDE 0.9% 100 ML IV SCH (09:12)
[2022-08-08] MEDS ORDERED: DEXAMETHASONE INJ 20 MG in SODIUM CHLORIDE 0.9% 50 ML IV ONE (10:00)
[2022-08-08] MEDS ORDERED: GRANISETRON 1 MG/1 ML VIAL IV SCH ×2 (10:00)
[2022-08-08] MEDS ORDERED: diphenhydrAMINE CAP 50 MG CAPSULE PO ONE (10:00)
[2022-08-08] MEDS ORDERED: FAMOTIDINE 20 MG TABLET PO ONE (10:00)
[2022-08-08] MEDS ORDERED: PEMETREXED DISODIUM IV ONE (10:30)
[2022-08-08] MEDS ORDERED: PEMETREXED IV ONE (10:30)
[2022-08-08] MEDS ORDERED: SODIUM CHLORIDE 0.9% IV ONE (10:30)
[2022-08-08] MEDS ORDERED: CARBOplatin 200 MG in SODIUM CHLORIDE 0.9% 250 ML IV ONE (11:30)
[2022-08-08] MEDS: ENOXAPARIN 40 MG/0.4 ML SYRINGE SUBCUT SCH (17:57)
[2022-08-09] MEDS: ALBUTEROL 1.25 MG/3 ML NEB RESP TX SCH ×4 (03:00→19:05)
[2022-08-09 05:39] LABS: Basophils % 0.1 % (0.0-0.8); Hematocrit 34.2 VOL% (35.7-47.0); Hemoglobin 10.4 GM/DL (12.0-16.0); Lymphocytes # 0.7 10*3/uL (1.4-4.0); Lymphocytes % 3.6 % (21.3-54.2); Mean Corpuscular HGB Conc 30.4 GM/DL (32-36); Mean Corpuscular Volume 99.1 FL (87-102); Mean Platelet Volume 10.1 FL (9.6-12.0); Monocytes # 0.6 10*3/uL (0.11-0.8); Monocytes % 2.9 % (1.7-12.7); Neutrophils % 92.4 % (38.7-73.9); Platelet Count 280 T/CUMM (130-400); Red Blood Count 3.45 MC/CUMM (3.8-5.5); Red Cell Distribution Width 12.8 % (9.3-17.3); White Blood Count 20.1 T/CUMM (4-12)
[2022-08-09 06:18] LABS: Calcium 8.4 MG/DL (8.5-10.1); Osmolality,Calculated 284.5 MOS/KG (273-304); Potassium 4.3 MMOL/L (3.5-5.1)
[2022-08-09 06:20] LABS: Anisocytosis 1+; Band Neutrophils 8 % (0-10); Hypochromia Slight; Lymphocytes 5 % (20-55); Macrocytosis 1+; Platelet Estimate Normal; Total Cells Counted 100
[2022-08-09] MEDS: INSULIN LISPRO 100 UNIT/ML SUBCUT SCH ×4 (07:55→20:20)
[2022-08-09] MEDS: OMEPRAZOLE ODT 20 MG TABLET PO SCH ×2 (09:10→20:19)
[2022-08-09] MEDS: POLYETHYLENE GLYCOL POWDER 17 GM PACK PO SCH (09:10)
[2022-08-09] MEDS: cefTRIAXone 2,000 MG in SODIUM CHLORIDE 0.9% 100 ML IV SCH (09:11)
[2022-08-09] MEDS: FOLIC ACID 1 MG TABLET PO SCH (09:11)
[2022-08-09] MEDS: ENOXAPARIN 40 MG/0.4 ML SYRINGE SUBCUT SCH (16:46)
[2022-08-10] MEDS: guaiFENesin 200 MG/10 ML UDCUP PO PRN ×3 (01:21→20:53)
[2022-08-10] MEDS: ALBUTEROL 1.25 MG/3 ML NEB RESP TX SCH ×5 (01:36→22:50)
[2022-08-10 09:07] LABS: Alanine Aminotransferase 53 U/L (13-56); Albumin 2.4 G/DL (3.4-5.0); Alkaline Phosphatase 131 U/L (45-117); Aspartate Amino Transferase 46 U/L (0-37); Bilirubin,Total < 0.39 MG/DL (0.20-1.00); Blood Urea Nitrogen 26 MG/DL (7-18); Carbon Dioxide 32 MMOL/L (21-32); Chloride 100 MMOL/L (98-107); Glucose 126 MG/DL (74-106); Osmolality,Calculated 279.8 MOS/KG (273-304); Potassium 4.2 MMOL/L (3.5-5.1); Sodium 137 MMOL/L (136-145)
[2022-08-10] MEDS: FOLIC ACID 1 MG TABLET PO SCH (09:20)
[2022-08-10] MEDS: OMEPRAZOLE ODT 20 MG TABLET PO SCH ×2 (09:20→20:52)
[2022-08-10] MEDS: CLORAZEPATE 3.75 MG TABLET PO PRN ×2 (09:21→20:52)
[2022-08-10] MEDS: POLYETHYLENE GLYCOL POWDER 17 GM PACK PO SCH (09:22)
[2022-08-10] MEDS: cefTRIAXone 2,000 MG in SODIUM CHLORIDE 0.9% 100 ML IV SCH (09:24)
[2022-08-10] MEDS: INSULIN LISPRO 100 UNIT/ML SUBCUT SCH ×4 (09:25→21:12)
[2022-08-10] MEDS: ENOXAPARIN 40 MG/0.4 ML SYRINGE SUBCUT SCH (17:36)
[2022-08-10] MEDS: ALBUTEROL 2.5 MG/3 ML NEB RESP TX PRN (18:10)
[2022-08-11] MEDS: ALBUTEROL 2.5 MG/3 ML NEB RESP TX PRN ×2 (01:12→06:15)
[2022-08-11] MEDS ORDERED: CLORAZEPATE 3.75 MG TABLET PO ONE (02:00)
[2022-08-11 04:46] LABS: Basophils # 0.1 10*3/uL (0.0-0.2); Basophils % 0.4 % (0.0-0.8); Eosinophils # 2.2 10*3/uL (0.0-0.87); Eosinophils % 11.1 % (0.00-10.9); Hematocrit 36.8 VOL% (35.7-47.0); Hemoglobin 11.2 GM/DL (12.0-16.0); Immature Granulocytes % 1.4 %; Immature Granulocytes Absolute 0.28 #; Mean Corpuscular HGB Conc 30.4 GM/DL (32-36); Mean Corpuscular Volume 100.5 FL (87-102); Mean Platelet Volume 10.2 FL (9.6-12.0); Monocytes # 0.2 10*3/uL (0.11-0.8); Monocytes % 1.1 % (1.7-12.7); Platelet Count 280 T/CUMM (130-400); Red Blood Count 3.66 MC/CUMM (3.8-5.5); Red Cell Distribution Width 13.2 % (9.3-17.3)
[2022-08-11 05:06] LABS: Alanine Aminotransferase 38 U/L (13-56); Alkaline Phosphatase 107 U/L (45-117); Aspartate Amino Transferase 22 U/L (0-37); Bilirubin,Total < 0.39 MG/DL (0.20-1.00); Blood Urea Nitrogen 19 MG/DL (7-18); Calcium 8.4 MG/DL (8.5-10.1); Carbon Dioxide 30 MMOL/L (21-32); Chloride 100 MMOL/L (98-107); Glucose 140 MG/DL (74-106); Osmolality,Calculated 276.8 MOS/KG (273-304); Potassium 4.2 MMOL/L (3.5-5.1); Sodium 137 MMOL/L (136-145); Total Protein 6.1 G/DL (6.4-8.2)
[2022-08-11 06:03] LABS: Band Neutrophils 6 % (0-10); Eosinophils 11 % (0-10); Lymphocytes 7 % (20-55); Platelet Estimate Normal; Total Cells Counted 100
[2022-08-11 06:04] LABS: Anisocytosis Slight; Macrocytosis 1+
[2022-08-11] MEDS: ALBUTEROL 1.25 MG/3 ML NEB RESP TX SCH ×4 (06:55→19:45)
[2022-08-11] MEDS ORDERED: FUROSEMIDE 20 MG/2 ML VIAL IV ONE (08:11)
[2022-08-11] MEDS: INSULIN LISPRO 100 UNIT/ML SUBCUT SCH ×3 (09:05→23:15)
[2022-08-11] MEDS: FOLIC ACID 1 MG TABLET PO SCH (09:06)
[2022-08-11] MEDS: OMEPRAZOLE ODT 20 MG TABLET PO SCH ×2 (09:07→23:13)
[2022-08-11] MEDS: POLYETHYLENE GLYCOL POWDER 17 GM PACK PO SCH (09:07)
[2022-08-11] MEDS: CLORAZEPATE 3.75 MG TABLET PO PRN (09:09)
[2022-08-11] MEDS: cefTRIAXone 2,000 MG in SODIUM CHLORIDE 0.9% 100 ML IV SCH (09:15)
[2022-08-11] MEDS: ENOXAPARIN 40 MG/0.4 ML SYRINGE SUBCUT SCH (18:14)
[2022-08-12] MEDS: ALBUTEROL 1.25 MG/3 ML NEB RESP TX SCH ×3 (00:32→12:24)
[2022-08-12] MEDS: ALBUTEROL 2.5 MG/3 ML NEB RESP TX PRN (05:02)
[2022-08-12] MEDS: INSULIN LISPRO 100 UNIT/ML SUBCUT SCH ×2 (07:58→11:49)
[2022-08-12] MEDS: FOLIC ACID 1 MG TABLET PO SCH (08:46)
[2022-08-12] MEDS: OMEPRAZOLE ODT 20 MG TABLET PO SCH (08:46)
[2022-08-12] MEDS: POLYETHYLENE GLYCOL POWDER 17 GM PACK PO SCH (08:46)
[2022-08-12 11:51] VITALS: BP 138/80
[2022-08-15] MEDS ORDERED: PEMBROLIZUMAB 200 MG in SODIUM CHLORIDE 0.9% 50 ML IV ONE (11:15)
[2022-08-15] MEDS ORDERED: diphenhydrAMINE CAP 25 MG CAPSULE PO ONE (11:20)
[2022-08-15] MEDS ORDERED: ACETAMINOPHEN 325 MG/10.15 ML UDCUP PO ONE (11:20)
[2022-08-15] MEDS ORDERED: FAMOTIDINE 20 MG TABLET PO ONE (11:20)
== END 2022-08-12 15:30 | disposition home or self-care (01) | DRG 166 ==
LOC: N.EDINP 13:19 → N.ED 13:19 → SUATTDRO 16:42 → N.3E 07-25 08:39 → SUATTDRO 07-28 15:37 → N.3E 08-03 16:57 → N.TELES 08-07 11:18
PROVIDERS: ADMIT Family Medicine; ATTEND Internal Medicine
PROC: IRBXLYN (2022-07-27 09:20)